=== PATIENT | female | born 1945 | race Caucasian/White ===

== ENCOUNTER 2023-09-19 10:46 | Emergency (ER) | payer MEDICARE, SELFPAY ==
[2023-09-19 10:46] VITALS: BP 178/78; PULSE 80; RESP 16; TEMP 36.2; O2SAT 100
--- NOTE | 2023-09-19 10:51 | ED.ABDPAIN ---
HPI - Abdominal Pain General Chief Complaint: Abdominal Pain Stated Complaint: constipation Time Seen by Provider: 09/19/23 10:51 Source: patient Mode of arrival: ambulatory Limitations: no limitations History of Present Illness HPI narrative: 77-year-old female with a history of hypertension AAA status post endovascular repair, diverticulosis, COPD had a tick bite on the . She was started on doxycycline on the 26 of August which she took for 7 days and stopped it because she had diarrhea. The patient presents to the ER with a 2 day history of -- cramping abdominal pain. No definite location. No exacerbating or relieving factors. -- Constipation with intermittent fecal incontinence MD elicited complaint: abdominal pain Pertinent past history: other ( diverticulosis) Onset (ago): day(s) ( 2 days) Pain Consistency: constant Location: none Severity: mild Quality: aching Radiation: none Migration to: no migration Exacerbating factors: nothing Relieving factors: nothing Associated symptoms: denies other symptoms Related Data Home Medications Medication Instructions Recorded Confirmed albuterol sulfate 90 mcg/actuation 2 puff inhalation QID PRN Wheezing 09/19/23 09/19/23 aerosol inhaler amlodipine 10 mg tablet 10 mg PO DAILY 09/19/23 09/19/23 atorvastatin 40 mg tablet 40 mg PO DAILY 09/19/23 09/19/23 losartan 100 mg tablet 100 mg PO DAILY 09/19/23 09/19/23 metoprolol tartrate 100 mg tablet 100 mg PO DAILY 09/19/23 09/19/23 omeprazole 20 mg capsule,delayed 20 mg PO DAILY 09/19/23 09/19/23 release venlafaxine 37.5 mg 37.5 mg PO DAILY 09/19/23 09/19/23 tablet,extended release 24 hr Allergies Allergy/AdvReac Type Severity Reaction Status Date / Time Sulfa (Sulfonamide Allergy Intermediate Rash Verified 09/19/23 11:01 Antibiotics) codeine AdvReac Intermediate Nausea and Verified 09/19/23 11:01 Vomiting Review of Systems Review of Systems: All systems reviewed & are unremarkable except as noted in HPI and below Constitutional: Constitutional: Reports as per HPI and Reports no additional constitutional complaints Eyes: Eyes: Reports as per HPI and Reports no additional eye complaints ENT: Reports system reviewed and no additional complaints, except as documented and Reports as per HPI Cardiovascular: Cardiovascular: Reports as per HPI and Reports no additional cardiovascular complaints Respiratory: Respiratory: Reports as per HPI and Reports no additional respiratory complaints Gastrointestinal: Gastrointestinal: Reports as per HPI, Reports no additional gastrointestinal complaints, Reports abdominal pain and Reports constipation Genitourinary: Genitourinary: Reports no additional female genitourinary complaints Musculoskeletal: Musculoskeletal: Reports no additional musculoskeletal complaints Integumentary/Breasts: Skin/Breast: Reports system reviewed and no additional complaints, except as docu and Reports as per HPI Neurologic: Reports system reviewed and no additional complaints, except as documented and Reports as per HPI Psychiatric: Psychiatric: Reports no additional psychiatric complaints and Reports as per HPI Endocrine: Endocrine: Reports no additional endocrine complaints and Reports as per HPI Hematologic/Lymphatic: Hematologic/Lymphatic: Reports no additional hematologic/lymphatic complaints and Reports as per HPI Allergic/Immunologic: Allergic/Immunologic: Reports no additional allergic/immunologic complaints and Reports as per HPI PMFSH Past Medical History Medical History (Updated 09/19/23 @ 12:11 by Gabino Jain MD) AAA (abdominal aortic aneurysm) COPD (chronic obstructive pulmonary disease) Diverticulosis Hypertension Social History Social History (Updated 09/19/23 @ 11:12 by Gabino Jain MD) Social History: ex-smoker . Quit 2 years ago Exam Narrative: afebrile Const: General: no acute distress Nutritional Appearance: well
[2023-09-19 11:32] LABS: Basophils Absolute Auto 0.02 K/mm3 (0.00-0.10); Basophils Percent Auto 0.2 % (0.0-1.0); Eosinophils Absolute Auto 0.04 K/mm3 (0.02-0.50); Eosinophils Percent Auto 0.4 % (1.0-6.0); Hematocrit 41.5 % (35.0-42.0); Hemoglobin 14.7 g/dL (11.7-13.8); Immature Granulocyte Absolute 0.03 K/mm3 (0.00-0.00); Immature Granulocyte Percent A 0.3 % (0.0-0.0); Mean Corpuscular HGB Conc 35.4 g/dL (32-36); Mean Corpuscular Hemoglobin 31.5 pg (27.0-31.0); Mean Corpuscular Volume 89.1 fL (78.0-102.0); Mean Platelet Volume 9.6 fl (9.2-11.8); Monocytes Absolute Auto 0.65 K/mm3 (0.10-0.90); Monocytes Percent Auto 6.5 % (2.0-11.0); Neutrophils Absolute Auto 8.13 K/mm3 (1.70-7.20); Neutrophils Percent Auto 81.6 % (50.0-70.0); Platelet Count Result 216 K/mm3 (150-420); Red Blood Count 4.66 M/mm3 (4.20-5.40); Red Cell Distribution Width 12.5 % (11.6-14.4)
[2023-09-19 11:33] LABS: Appearance Urine Clear (Clear); Bilirubin Urine Negative (Negative); Blood Urine Trace-intact (Negative); Color Urine Light Yellow (Yellow); Glucose Urine UA Negative (Negative); Ketones Urine Negative (Negative); Leukocyte Esterase Ur Negative LEU/UL (Negative); Nitrate Urine Negative (Negative); Protein Urine Negative (Negative); Specific Grav Ur <= 1.005 (1.010-1.020); Urobilinogen Urine 0.2 mg/dL (0.2-1.0); pH Urine 5.5 (5.0-8.0)
--- NOTE | 2023-09-19 11:33 | PC.NURSE ---
PT TO RR WITHOUT DIFFICULTY, 2 DROPS OF STOOL NOTED IN HAT. PT IS DRINKING WATER WITHOUT AND DISTRESS, DAUGHTER IS AT BEDSIDE. WILL CONTINUE TO MONITOR.
[2023-09-19 11:43] LABS: Add Urine Microscopic? YES; Squamous Epithelial Cell Urine Many /hpf (Few); WBC Urine None seen /hpf (0-3)
[2023-09-19 11:44] LABS: Prothrombin Time 11.3 Seconds (9.50-12.1)
[2023-09-19 11:44] LABS: Bacteria Urine None seen /hpf; Mucus Urine Few /lpf; Renal Epithelial Cells Urine Rare /hpf
[2023-09-19 11:47] LABS: Alanine Aminotransferase 18 U/L (14-59); Albumin Level 4.1 g/dL (3.4-5.0); Alkaline Phosphatase 99 U/L (46-116); Anion Gap 12 mmol/L (4-12); Aspartate Amino Transferase 24 U/L (15-37); Bilirubin,Total 0.8 mg/dL (0.00-1.00); Blood Urea Nitrogen 10 mg/dL (7-18); Calcium 9.2 mg/dL (8.5-10.1); Carbon Dioxide 27 mmol/L (21-32); Chloride 94 mmol/L (98-108); Estimated CRCL calculation 34 ml/min; Estimated Glomerular Filt Rate 57; Glucose 122 mg/dL (70-99); Lipase 50 U/L (16-77); Osmolality Calculated 276 mOsm/kg (285-295); Potassium 3.2 mmol/L (3.5-5.1); Sodium 133 mmol/L (136-145); Total Protein 7.4 g/dL (6.4-8.2)
[2023-09-19 11:52] LABS: Lactic Acid Reflex 1.2 mmol/L (0.4-2.0)
[2023-09-19 12:25] VITALS: BP 142/78; PULSE 72; RESP 18; O2SAT 98
== END 2023-09-19 12:25 | disposition home or self-care (01) ==
PROVIDERS: Emergency Provider Internal Medicine Critical Care Medicine
DX: K57.90 Diverticulosis of intestine, part unspecified, without perforation or abscess without bleeding (principal); I10 Essential (primary) hypertension; J44.9 Chronic obstructive pulmonary disease, unspecified; Z87.891 Personal history of nicotine dependence
CPT/HCPCS: 36415; 80053; 81001; 83605; 83690; 85025; 85610; 99283